=== PATIENT | male | born 1980 | race Caucasian/White ===

== ENCOUNTER 2016-07-19 11:07 | Emergency (ER) | payer MEDICAID, OTHER ==
--- NOTE | 2016-07-19 11:28 | EDM.PDOC ---
ED HPI GENERAL MEDICAL PROBLEM - General Chief Complaint: General Stated Complaint: doesnt feel well, shaky. Time Seen by Provider: 07/19/16 11:20 Source of Information: Reports: Patient, Old records ([facility] chart/EMR) History Limitations: Reports: No limitations - History of Present Illness INITIAL COMMENTS - FREE TEXT/NARRATIVE: Patient was brought to the emergency room via private automobile by his maternal aunt for evaluation of recent exacerbation of his alcohol abuse. The patient has been drinking about 1 L of vodka per day for the last 10 days secondary to increased stressors and his inability to see his son. The patient had been dry for about 2.5 years with a long history of previous alcohol abuse as above including inpatient alcohol treatment in [place] about 3 years. He has had nonspecific generalized abdominal wall pain and left lower chest wall pain during the last couple of days with at least 5 loose bowel movements per day and 20 episodes of emesis per day secondary to his alcohol use. No recent history of other abdominal pain, heartburn, melena, gross hematochezia, hematemesis, or any food intolerance, including fatty foods, etc., although the patient has not been eating much during the last couple of days. His last alcohol intake was at 22:30 hours this past evening. He rates his discomfort at 10/10 in the past but 5/10 currently. The patient does admit to using some marijuana about one month ago. The patient has not been to work since 07/14 secondary to his alcohol use and the above symptoms. The patient also denies any recent fever, cough, wheezing, dyspnea, etc.. Onset: gradual Onset Date: 07/17/16 Duration: Getting worse, Intermittent Location: Reports: chest, abdomen. Denies: head, face, neck, back, pelvis, upper extremity, left, upper extremity, right Quality: Reports: Ache, Burning Severity: severe Improves with: Reports: None Worsens with: Reports: None Context: Reports: Other (As above) Associated Symptoms: Denies: confusion, chest pain, cough, diaphoresis, fever/ chills, headaches, loss of appetite, malaise, nausea/vomiting, seizure, shortness of breath, syncope, weakness Treatments MEDICAL RESEARCH ASSISTANT: Reports: Other (see below) (None) abdominal pain Pain Score (Numeric/FACES): 5 - Related Data Allergies Allergy/AdvReac Type Severity Reaction Status Date / Time tramadol Allergy Shaking Verified 07/19/16 11:08 Home Meds: Home Meds Omeprazole Magnesium [Prilosec Otc] 20 mg PO BIDAC #14 tablet. 07/19/16 [Rx] Ondansetron [Zofran ODT] 4 mg PO Q6H PRN #10 tab.dis 07/19/16 [Rx] Past Medical History HEENT History: Reports: Other (see below) Other HEENT History: Caries Cardiovascular History: Reports: Hypertension Gastrointestinal History: Reports: Cholelithiasis, Gastritis, GI bleed, Hepatitis, PUD, Other (see below) Other Gastrointestinal History: Chronic LFTs elevation secondary to alcohol abuse and possible fatty liver, previous GI bleed on 12/30/11 with history of peptic ulcer disease secondary to NSAIDs and alcohol use, acute cholecystitis with hyperbilirubinemia on 07/10/12 with no surgery Musculoskeletal History: Reports: Fracture, Osteoarthritis, Other (see below) Other Musculoskeletal History: Right proximal fibular fracture in 2017, right distal clavicular fracture on 06/28/16, right second, third, and fourth metatarsal fractures on 01/23/12, multiple previous knee injuries including ligamental tears with no surgeries Neurological History: Reports: Other (see below). Denies: Seizure Other Neuro History: No history of DTs or alcohol-induced seizures Psychiatric History: Reports: Addiction, Anxiety, Depression, Psych Hospitalization(s), Other (see below) Other Psychiatric History: Alcohol treatment in about 2013, alcohol and marijuana abuse - Past Surgical History GI Surgical History: Reports: Appendectomy, Hernia, inguinal, Other (see below) Other GI Surgeries/Procedures: Appendectomy at age 17, right inguinal hernia repair at age 8 Social & Family History - Tobacco Use Smoking Status *Q: Current Every Day Smoker Tobacco Use Within Last Twelve Months: Cigarettes Years of Tobacco use: 18 Packs/Tins Daily: 1 (Maximum use of 2 packs per day) Used Tobacco, but Quit: Yes Smoking Cessation Information Provided To Patient: Yes Second Hand Smoke Exposure: Yes Second Hand Smoke Education Provided: Yes - Alcohol Use Alcohol Use History: Yes Days Per Week of Alcohol Use: 7 (4 previous DUIs last in April 2013 with secondary incarceration) Number of Drinks Per Day: 10 (1 L of vodka/day as above) Total Drinks Per Week: 70 Date of Last Drink: 07/18/16 Time of Last Drink: 22:30 Alcohol Use in Last Twelve Months: Yes Alcohol Use Frequency: Binges - Recreational Drug Use Recreational Drug Use: Yes Drug Use in Last 12 Months: Yes Recreational Drug Type: Reports: Marijuana/Hashish Recreational Drug Use Frequency: Binges Recreational Drug Last Use: May 2016 Recreational Drug Route: Reports: Inhaled - Living Situation & Occupation Living situation: Reports: single (One child) 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 ED EXAM, GENERAL - Physical Exam Exam: See Below Exam Limited By: Intoxication General Appearance: no apparent distress, anxious (Moderate), other (Moderate intoxication) Eye Exam: bilateral eye: EOMI, normal inspection (No nystagmus), PERRL Ears: normal external exam, normal canal, hearing grossly normal, normal TMs Nose: normal inspection, normal mucosa, no blood Throat/Mouth: Normal inspection, Normal lips, Normal gums, Normal oropharynx, Normal voice, No airway compromise. No: Normal teeth (Multiple caries and broken teeth into the gumline with no acute abscesses), Dysphagia, Inflammation Head: atraumatic, normocephalic. No: facial swelling, facial tenderness, sinus tenderness Neck: normal inspection, supple, non-tender, full range of motion. No: lymphadenopathy (L), lymphadenopathy (R), thyromegaly Respiratory/Chest: no respiratory distress, lungs clear, normal breath sounds, no accessory muscle use, chest non-tender. No: pleural rub, retractions Cardiovascular: normal peripheral pulses, regular rate, rhythm, no edema, no gallop, no JVD, no murmur, no rub. No: gallop/S3, gallop/S4, friction rub Peripheral Pulses: 4+: radial (L), radial (R) GI/Abdominal: normal bowel sounds, soft, non tender, no organomegaly, no distention, no abnormal bruit, no mass. No: guarding (Male) Exam: Deferred Rectal (Males) Exam: Deferred Back Exam: normal inspection, full range of motion. No: CVA tenderness (L), CVA tenderness (R) Extremities: normal inspection, normal range of motion, non-tender, no pedal edema, normal capillary refill. No: Lanie's Sign Neurological: alert, oriented, CN II-XII intact, normal cognition, normal gait, normal reflexes (Negative Babinski's), no motor/sensory deficits Psychiatric: anxious (Moderate), depressed mood (Moderate with adequate eye contact and no suicidal ideation) Skin Exam: Warm, Dry, Intact, Normal color, No rash. No: Diaphoretic, Jaundice , Wound/incision Lymphatic: no adenopathy Course - Vital Signs Last Recorded V/S: Last Vital Signs Temp 36.7 C 07/19/16 12:27 Pulse 73 07/19/16 12:27 Resp 20 07/19/16 12:27 BP 119/72 07/19/16 12:27 Pulse Ox 98 07/19/16 12:27 Vital Signs - 24 hr 07/19/16 07/19/16 11:11 12:27 Temperature [ 36.7 C Temporal] Pulse, 101 H 73 Peripheral [ Right Pulse Oximetry] Respiratory 20 20 Rate Blood Pressure 127/97 H [Left Upper Arm ] Blood Pressure 119/72 [Right Upper Arm] O2 Sat by Pulse 97 98 Oximetry - Orders/Labs/Meds Orders: Active Orders 24 hr Category Date Time Status Peripheral IV Care [RC] . DIRECTED Care 07/19/16 11:33 Active Abdomen Series w Chest 1V [CR] Stat Exams 07/19/16 11:34 Taken CULTURE URINE [RM] Routine Lab 07/19/16 13:15 Received Obtain Past Medical Record [OM.PC] Urgent Oth 07/19/16 11:30 Active Peripheral IV Insertion Adult [OM.PC] Routine Oth 07/19/16 11:30 Ordered Labs: Laboratory Tests 07/19/16 07/19/16 07/19/16 Range/Units 11:35 11:35 11:35 WBC 5.9 (4.0-10.2) K/uL RBC 5.30 (4.33-5.41) M/uL Hgb 17.1 H D (13.1-16.8) g/dL Hct 48.8 (39.0-49.0) % MCV 92.1 (84.0-98.0) fL MCH 32.3 (28.2-33.3) pg MCHC 35.0 (31.7-36.0) g/dL RDW 14.9 H (11.2-14.1) % Plt Count 232 (150-350) K/uL Neut % (Auto) 39.5 L (45.0-80.0) % Lymph % (Auto) 51.0 H (10.0-50.0) % Terrell % (Auto) 7.6 (2.0-14.0) % Eos % (Auto) 1.2 (0.0-5.0) % Baso % (Auto) 0.7 (0.0-2.0) % Neut # (Auto) 2.35 (1.40-7.00) K/uL Lymph # (Auto) 3.03 (0.50-3.50) K/uL Terrell # (Auto) 0.45 (0.00-1.00) K/uL Eos # (Auto) 0.07 (0.00-0.50) K/uL Baso # (Auto) 0.04 (0.00-0.20) K/uL PT 11.7 (9.8-11.7) SEC INR 1.1 APTT (23.5-30.0) SEC Sodium 141 (136-145) mmol/L Potassium 3.6 (3.5-5.1) mmol/L Chloride 102 (98-107) mmol/L Carbon Dioxide 24.2 (21.0-32.0) mmol/L BUN 13 (7-18) mg/dL Creatinine 0.84 (0.51-1.17) mg/dL Est Cr Clr Drug Dosing TNP Estimated GFR (MDRD) > 60 mL/min Glucose 104 (74-106) mg/dL Lactic Acid (0.4-2.0) mmol/L Uric Acid (2.6-7.2) mg/dL Calcium 8.2 L (8.5-10.1) mg/dL Magnesium (1.8-2.4) mg/dL Total Bilirubin 1.1 H (0.2-1.0) mg/dL AST 65 H (15-37) U/L ALT 41 (12-78) U/L Alkaline Phosphatase 96 (46-116) IU/L Total Protein 8.0 (6.4-8.2) g/dL Albumin 4.1 (3.4-5.0) g/dL Amylase 70 (25-115) U/L Lipase (73-393) U/L TSH, Ultra Sensitive (0.358-3.740) mIU/mL Specimen Type Urine Color Urine Appearance Urine pH (5.0-9.0) Ur Specific Max (1.005-1.030) Urine Protein (NEGATIVE) mg/dL Urine Glucose (UA) (NEGATIVE) mg/dL Urine Ketones (NEGATIVE) mg/dL Urine Occult Blood (NEGATIVE) Urine Nitrite (NEGATIVE) Urine Bilirubin (NEGATIVE) Urine Urobilinogen (0.2-1.0) E.U./dL Ur Leukocyte Esterase (NEGATIVE) Urine RBC /HPF Urine WBC /HPF Ur Epithelial Cells /LPF Urine Bacteria (NONE TO FEW) /HPF Urine Mucus (NEGATIVE) /LPF Urine Opiates Screen (NEGATIVE) Urine Methadone Screen (NEGATIVE) U Acetaminophen Screen (NEGATIVE) Ur Barbiturates Screen (NEGATIVE) Ur Tricyclics Screen (NEGATIVE) Ur Phencyclidine Scrn (NEGATIVE) Ur Amphetamine Screen (NEGATIVE) U Methamphetamines Scrn (NEGATIVE) U Benzodiazepines Scrn (NEGATIVE) U Cocaine Metab Screen (NEGATIVE) U Marijuana (THC) Screen (NEGATIVE) Ethyl Alcohol (0.000-0.080) g/dL Ketones H. pylori IgG Antibody (NEGATIVE) 07/19/16 07/19/16 07/19/16 Range/Units 11:35 11:35 11:35 WBC (4.0-10.2) K/uL RBC (4.33-5.41) M/uL Hgb (13.1-16.8) g/dL Hct (39.0-49.0) % MCV (84.0-98.0) fL MCH (28.2-33.3) pg MCHC (31.7-36.0) g/dL RDW (11.2-14.1) % Plt Count (150-350) K/uL Neut % (Auto) (45.0-80.0) % Lymph % (Auto) (10.0-50.0) % Terrell % (Auto) (2.0-14.0) % Eos % (Auto) (0.0-5.0) % Baso % (Auto) (0.0-2.0) % Neut # (Auto) (1.40-7.00) K/uL Lymph # (Auto) (0.50-3.50) K/uL Terrell # (Auto) (0.00-1.00) K/uL Eos # (Auto) (0.00-0.50) K/uL Baso # (Auto) (0.00-0.20) K/uL PT (9.8-11.7) SEC INR APTT 28.7 (23.5-30.0) SEC Sodium (136-145) mmol/L Potassium (3.5-5.1) mmol/L Chloride (98-107) mmol/L Carbon Dioxide (21.0-32.0) mmol/L BUN (7-18) mg/dL Creatinine (0.51-1.17) mg/dL Est Cr Clr Drug Dosing Estimated GFR (MDRD) mL/min Glucose (74-106) mg/dL Lactic Acid (0.4-2.0) mmol/L Uric Acid 7.4 H (2.6-7.2) mg/dL Calcium (8.5-10.1) mg/dL Magnesium 1.6 L (1.8-2.4) mg/dL Total Bilirubin (0.2-1.0) mg/dL AST (15-37) U/L ALT (12-78) U/L Alkaline Phosphatase (46-116) IU/L Total Protein (6.4-8.2) g/dL Albumin (3.4-5.0) g/dL Amylase (25-115) U/L Lipase 248 (73-393) U/L TSH, Ultra Sensitive 1.055 (0.358-3.740) mIU/mL Specimen Type Urine Color Urine Appearance Urine pH (5.0-9.0) Ur Specific Max (1.005-1.030) Urine Protein (NEGATIVE) mg/dL Urine Glucose (UA) (NEGATIVE) mg/dL Urine Ketones (NEGATIVE) mg/dL Urine Occult Blood (NEGATIVE) Urine Nitrite (NEGATIVE) Urine Bilirubin (NEGATIVE) Urine Urobilinogen (0.2-1.0) E.U./dL Ur Leukocyte Esterase (NEGATIVE) Urine RBC /HPF Urine WBC /HPF Ur Epithelial Cells /LPF Urine Bacteria (NONE TO FEW) /HPF Urine Mucus (NEGATIVE) /LPF Urine Opiates Screen (NEGATIVE) Urine Methadone Screen (NEGATIVE) U Acetaminophen Screen (NEGATIVE) Ur Barbiturates Screen (NEGATIVE) Ur Tricyclics Screen (NEGATIVE) Ur Phencyclidine Scrn (NEGATIVE) Ur Amphetamine Screen (NEGATIVE) U Methamphetamines Scrn (NEGATIVE) U Benzodiazepines Scrn (NEGATIVE) U Cocaine Metab Screen (NEGATIVE) U Marijuana (THC) Screen (NEGATIVE) Ethyl Alcohol 0.203 H (0.000-0.080) g/dL Ketones Negative H. pylori IgG Antibody Negative (NEGATIVE) 07/19/16 07/19/16 07/19/16 Range/Units 11:35 13:15 13:15 WBC (4.0-10.2) K/uL RBC (4.33-5.41) M/uL Hgb (13.1-16.8) g/dL Hct (39.0-49.0) % MCV (84.0-98.0) fL MCH (28.2-33.3) pg MCHC (31.7-36.0) g/dL RDW (11.2-14.1) % Plt Count (150-350) K/uL Neut % (Auto) (45.0-80.0) % Lymph % (Auto) (10.0-50.0) % Terrell % (Auto) (2.0-14.0) % Eos % (Auto) (0.0-5.0) % Baso % (Auto) (0.0-2.0) % Neut # (Auto) (1.40-7.00) K/uL Lymph # (Auto) (0.50-3.50) K/uL Terrell # (Auto) (0.00-1.00) K/uL Eos # (Auto) (0.00-0.50) K/uL Baso # (Auto) (0.00-0.20) K/uL PT (9.8-11.7) SEC INR APTT (23.5-30.0) SEC Sodium (136-145) mmol/L Potassium (3.5-5.1) mmol/L Chloride (98-107) mmol/L Carbon Dioxide (21.0-32.0) mmol/L BUN (7-18) mg/dL Creatinine (0.51-1.17) mg/dL Est Cr Clr Drug Dosing Estimated GFR (MDRD) mL/min Glucose (74-106) mg/dL Lactic Acid 2.8 H (0.4-2.0) mmol/L Uric Acid (2.6-7.2) mg/dL Calcium (8.5-10.1) mg/dL Magnesium (1.8-2.4) mg/dL Total Bilirubin (0.2-1.0) mg/dL AST (15-37) U/L ALT (12-78) U/L Alkaline Phosphatase (46-116) IU/L Total Protein (6.4-8.2) g/dL Albumin (3.4-5.0) g/dL Amylase (25-115) U/L Lipase (73-393) U/L TSH, Ultra Sensitive (0.358-3.740) mIU/mL Specimen Type Urincc Urine Color [place] Urine Appearance Clear Urine pH 7.0 (5.0-9.0) Ur Specific Max 1.025 (1.005-1.030) Urine Protein 30 H (NEGATIVE) mg/dL Urine Glucose (UA) Negative (NEGATIVE) mg/dL Urine Ketones Trace H (NEGATIVE) mg/dL Urine Occult Blood Negative (NEGATIVE) Urine Nitrite Negative (NEGATIVE) Urine Bilirubin Small H (NEGATIVE) Urine Urobilinogen 1.0 (0.2-1.0) E.U./dL Ur Leukocyte Esterase Negative (NEGATIVE) Urine RBC 0-5 /HPF Urine WBC 0-5 /HPF Ur Epithelial Cells Few /LPF Urine Bacteria Few (NONE TO FEW) /HPF Urine Mucus Many H (NEGATIVE) /LPF Urine Opiates Screen Positive H (NEGATIVE) Urine Methadone Screen Negative (NEGATIVE) U Acetaminophen Screen Negative (NEGATIVE) Ur Barbiturates Screen Negative (NEGATIVE) Ur Tricyclics Screen Negative (NEGATIVE) Ur Phencyclidine Scrn Negative (NEGATIVE) Ur Amphetamine Screen Negative (NEGATIVE) U Methamphetamines Scrn Negative (NEGATIVE) U Benzodiazepines Scrn Negative (NEGATIVE) U Cocaine Metab Screen Negative (NEGATIVE) U Marijuana (THC) Screen Positive H (NEGATIVE) Ethyl Alcohol (0.000-0.080) g/dL Ketones H. pylori IgG Antibody (NEGATIVE) Meds: Medications Discontinued Medications Generic Name Dose Route Start Last Admin Trade Name Freq PRN Reason Stop Dose Admin Famotidine 40 mg 07/19/16 11:31 07/19/16 11:46 Pepcid IVPUSH 07/19/16 11:32 40 mg ONETIME ONE Administration Lactated Ringer's 1,000 mls @ 999 mls/hr 07/19/16 11:31 07/19/16 11:46 Ringers, Lactated IV 07/19/16 12:31 999 mls/hr .BOLUS ONE Administration Ondansetron HCl 4 mg 07/19/16 11:31 07/19/16 11:46 Zofran IVPUSH 07/19/16 11:32 4 mg ONETIME ONE Administration Pantoprazole Sodium 40 mg 07/19/16 11:31 07/19/16 11:46 Protonix Iv IVPUSH 07/19/16 11:32 40 mg ONETIME ONE Administration Sodium Chloride 10 ml 07/19/16 11:31 07/19/16 11:46 Saline Flush FLUSH 10 ml ASDIRECTED PRN Administration Keep Vein Open Departure - Departure Time of Disposition: 13:40 Disposition: Home, Self-Care 01 Condition: fair Clinical Impression: Mixed anxiety and depressive disorder, Dental caries, Alcohol abuse, Elevated LFTs, Illicit drug use, Tobacco abuse counseling, Hyperuricemia, Hypomagnesemia , Dehydration, Peptic reflux disease, Lactic acid increased COPD (chronic obstructive pulmonary disease) Qualifiers: COPD type: emphysema Emphysema type: panlobular Qualified Code(s): J43.1 - Panlobular emphysema Abdominal pain Qualifiers: Abdominal location: generalized Qualified Code(s): R10.84 - Generalized abdominal pain Prescriptions: Omeprazole Magnesium [Prilosec Otc] 20 mg PO BIDAC #14 tablet. Ondansetron [Zofran ODT] 4 mg PO Q6H PRN #10 tab.dis PRN Reason: Nausea/Vomiting Instructions: Alcoholic Liver Disease, [id number], Alcohol Use Disorder, Gout , [id number], Ondansetron injection, Pantoprazole injection, Alcohol Intoxication, [id number], Famotidine injection, Gastroesophageal Reflux Disease, Adult Referrals: PCP,None [Ordering Only Provider] - Forms: ED Department Discharge, Return to Work/School Form Additional Instructions: 1. Followup with your regular provider in the next 3-7 days for reevaluation and recommended repeat 12 hour fasting CBC, magnesium level, uric acid level, lactic acid level, lipid panel, and comprehensive metabolic panel 2. Stop all alcohol use and illicit drug use VALENTIN as discussed. 3. Work excuse- See Form 4. Strongly consider alcohol treatment and evaluation VALENTIN with recommendation of possible directed evaluation by [facility] in [place] 5. Followup with dentist VALENTIN as previously recommended 6. Williams diet including encouragement of oral fluids such as sports drinks, etc. for 24-48 hours as directed. Advance to strict low-fat, low-cholesterol diet, uric acid as tolerated thereafter. 7. No driving for the next 24 hours with no driving while using alcohol, illicit drugs, etc. 8. Stop all tobacco use VALENTIN as directed/per provided information and consider contacting [employer], etc.. 9. Consider lung function test/PFTs by your regular provider - Problem List & Annotations (1) Abdominal pain SNOMED Code(s): 66995017 Code(s): R10.9 - UNSPECIFIED ABDOMINAL PAIN Status: Acute Priority: High Onset Date: ~07/17/16 Annotation/Comment:: Nonspecific generalized abdominal pain and left lower rib pain from muscle strain secondary to recurrent nausea and emesis as above. Observe for now. Close followup by his regular providers as per discharge instructions. Symptoms resolved at time of discharge, including no nausea or emesis Qualifiers: Abdominal location: generalized Qualified Code(s): R10.84 - Generalized abdominal pain (2) Alcohol abuse SNOMED Code(s): 90451357 Code(s): F10.10 - ALCOHOL ABUSE, UNCOMPLICATED Status: Acute Priority: High Annotation/Comment:: Long history of alcohol abuse as above. Emotional support provided. Various therapeutic options were discussed with the patient, who does not wish to have referral today for immediate alcohol treatment. He was strongly advised to obtain this treatment VALENTIN and stop all alcohol use immediately. He does not wish to return to treatment facilities and [place], however does agree to consider [facility] in [place]. Note persistent alcohol level of 203 this morning despite discontinuing alcohol yesterday evening as above with the patient not feeling intoxicated at this time. (3) Lactic acid increased SNOMED Code(s): 96994705 Code(s): E87.2 - ACIDOSIS Status: Acute Priority: High Onset Date: Annotation/Comment:: Likely secondary to his alcohol use and mild dehydration. IV fluids given in the emergency room. Close followup by his regular provider as per discharge instructions. No evidence of significant clinical acidosis (4) Dehydration SNOMED Code(s): 65297215 Code(s): E86.0 - DEHYDRATION Status: Acute Priority: High Onset Date: ~ 07/19/16 Annotation/Comment:: Abdomen symptoms, etc. significantly improved with IV fluids, etc. as above. Various therapeutic options were discussed with the patient not wishing any further IV fluids at this time. Williams diet, encouragement of oral fluids, etc. as per discharge instructions (5) Mixed anxiety and depressive disorder SNOMED Code(s): 033217025 Code(s): F41.8 - OTHER SPECIFIED ANXIETY DISORDERS Status: Acute Priority : Medium Annotation/Comment:: Moderate control by today's exam. Continue to observe closely by his regular providers (6) Dental caries SNOMED Code(s): 68374367 Code(s): K02.9 - DENTAL CARIES, UNSPECIFIED Status: Chronic Priority: Medium Onset Date: 12/17/13 Annotation/Comment:: Patient previously given information concerning local dentist and also the dental clinic in [place] and advised to followup with a dentist [facility]. (7) COPD (chronic obstructive pulmonary disease) SNOMED Code(s): 17411561 Code(s): J44.9 - CHRONIC OBSTRUCTIVE PULMONARY DISEASE, UNSPECIFIED Status : Chronic Priority: Medium Annotation/Comment:: COPD by chest x-ray likely secondary to his tobacco use. Followup and further evaluation by his regular providers as per discharge instructions Qualifiers: COPD type: emphysema Emphysema type: panlobular Qualified Code(s): J43.1 - Panlobular emphysema (8) Elevated LFTs SNOMED Code(s): 503552773 Code(s): R94.5 - ABNORMAL RESULTS OF LIVER FUNCTION STUDIES Status: Chronic Priority: Medium Annotation/Comment:: Likely chronic LFTs elevation secondary to his alcohol use. Close followup by his regular provider as per discharge instructions (9) Hyperuricemia SNOMED Code(s): 75972186 Code(s): E79.0 - HYPERURICEMIA W/O SIGNS OF INFLAM ARTHRIT AND TOPHACEOUS DIS Status: Acute Priority: Medium Onset Date: 07/19/16 Annotation/ Comment:: No history of gout or gout attacks in the future. Hyperuricemia likely secondary to his alcohol use. Dietary issues, etc. discussed and provided (10) Hypomagnesemia SNOMED Code(s): 427639696 Code(s): E83.42 - HYPOMAGNESEMIA Status: Acute Priority: Medium Onset Date: 07/19/16 Annotation/Comment:: Likely secondary to his alcohol use. Close follow up by his regular provider (11) Illicit drug use SNOMED Code(s): 201026740 Code(s): F19.90 - OTHER PSYCHOACTIVE SUBSTANCE USE, UNSPECIFIED, UNCOMPLICATED Status: Chronic Priority: High Annotation/Comment:: Discontinue all illicit drug use VALENTIN as discussed (12) Peptic reflux disease SNOMED Code(s): 38910219 Code(s): K21.9 - GASTRO-ESOPHAGEAL REFLUX DISEASE WITHOUT ESOPHAGITIS Status: Acute Priority: High Annotation/Comment:: IV Pepcid and IV Protonix given as GI prophylaxis. Further GI workup depending on his clinical course (13) Tobacco abuse counseling SNOMED Code(s): 374948673, 328768276, 608462115 Code(s): Z71.6 - TOBACCO ABUSE COUNSELING Status: Chronic Priority: Medium Annotation/Comment:: Tobacco cessation strongly encouraged with information provided - Problem List Review Problem List Initiated/Reviewed/Updated: Yes - My Orders Last 24 Hours: My Active Orders 07/19/16 11:30 Obtain Past Medical Record [OM.PC] Urgent Peripheral IV Insertion Adult [OM.PC] Routine 07/19/16 11:33 Peripheral IV Care [RC] . DIRECTED 07/19/16 11:34 Abdomen Series w Chest 1V [CR] Stat 07/19/16 13:15 CULTURE URINE [RM] Routine - Assessment/Plan Last 24 Hours: My Active Orders 07/19/16 11:30 Obtain Past Medical Record [OM.PC] Urgent Peripheral IV Insertion Adult [OM.PC] Routine 07/19/16 11:33 Peripheral IV Care [RC] . DIRECTED 07/19/16 11:34 Abdomen Series w Chest 1V [CR] Stat 07/19/16 13:15 CULTURE URINE [RM] Routine Assessment:: As above Plan: As above. Extensive precautions were given to the patient and his mother, who are in agreement with the treatment plan. See Patient Instructions for further treatment and plan.
[2016-07-19] MEDS ORDERED: Pantoprazole 40 MG Vial IVPUSH ONE (11:31)
[2016-07-19] MEDS ORDERED: Famotidine 20 MG/2 ML SDV IVPUSH ONE (11:31)
[2016-07-19] MEDS ORDERED: Lactated Ringers 1,000 ML IV ONE (11:31)
[2016-07-19] MEDS ORDERED: Sodium Chloride 0.9% 10 ML Syringe FLUSH PRN (11:31)
[2016-07-19] MEDS ORDERED: Ondansetron 4 MG/2 ML SDV IVPUSH ONE (11:31)
[2016-07-19 11:59] LABS: CHLORIDE,CL 102 mmol/L (98-107); SODIUM,NA 141 mmol/L (136-145)
[2016-07-19 12:31] VITALS: BP 119/72
== END 2016-07-19 13:45 | disposition home or self-care (01) ==
LOC: LL.ED 11:07
DX: R10.84 Generalized abdominal pain (principal); F10.129 Alcohol abuse with intoxication, unspecified; F41.8 Other specified anxiety disorders; K02.9 Dental caries, unspecified; F17.200 Nicotine dependence, unspecified, uncomplicated; E79.0 Hyperuricemia without signs of inflammatory arthritis and tophaceous disease; E86.0 Dehydration; K21.9 Gastro-esophageal reflux disease without esophagitis; J43.1 Panlobular emphysema; F12.90 Cannabis use, unspecified, uncomplicated; R94.5 Abnormal results of liver function studies; E83.42 Hypomagnesemia
CPT/HCPCS: 36415; 74022; 80053; 80305; 81001; 82009; 82150; 83605; 83690; 83735; 84443; 84550; 85025; 85610; 85730; 86318; 87086; 96361; 96374; 96375; 99285; C9113; G0480; J2405; J7050; J7120; 99283; S0028

== ENCOUNTER 2016-12-19 08:00 | Inpatient (IN) | payer MEDICAID, OTHER ==
[2016-12-19] MEDS ORDERED: LORazepam 2 MG/ML MDV IVPUSH ONE ×2 (08:13→12:34)
[2016-12-19] MEDS ORDERED: Ondansetron 4 MG/2 ML SDV IVPUSH ONE (08:13)
[2016-12-19] MEDS ORDERED: Sodium Chloride 0.9% 1,000 ML IV ONE ×2 (08:13→10:23)
[2016-12-19] MEDS ORDERED: Pantoprazole 40 MG Vial IVPUSH ONE (08:42)
[2016-12-19 09:12] LABS: CHLORIDE,CL 101 mmol/L (98-107); SODIUM,NA 141 mmol/L (136-145)
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
[2016-12-19] MEDS ORDERED: Potassium Chloride 10 MEQ Tab.ER PO ONE ×2 (10:25→18:58)
[2016-12-19] MEDS ORDERED: Famotidine 20 MG/2 ML SDV IVPUSH ONE (10:25)
[2016-12-19] MEDS ORDERED: Potassium Chloride 10 MEQ in Premix Bag 1 BAG IV ONE (10:26)
[2016-12-19] MEDS ORDERED: Thiamine 100 MG in Sodium Chloride 0.9% 100 ML IV ONE (10:27)
[2016-12-19] MEDS: Ondansetron 4 MG/2 ML SDV IVPUSH PRN ×2 (13:16→19:34)
[2016-12-19] MEDS ORDERED: Acetaminophen 325 MG Tab PO PRN (14:21)
[2016-12-19] MEDS ORDERED: Promethazine 25 MG/ML SDV IM ONE (15:57)
[2016-12-19] MEDS ORDERED: Sodium Chloride 0.9% 1,000 ML IV SCH (16:00)
[2016-12-19] MEDS: Nicotine 21 MG/24 Hr Patch TRDERM SCH (16:08)
[2016-12-19] MEDS ORDERED: Dextrose 5%-Lactated Ringers 1,000 ML IV SCH (19:15)
[2016-12-19] MEDS: Sodium Chloride 0.9% 10 ML Syringe FLUSH PRN (19:34)
[2016-12-19] MEDS: LORazepam 2 MG/ML MDV IVPUSH PRN ×2 (19:34→23:40)
[2016-12-19] MEDS: Ketorolac 30 MG/ML SDV IVPUSH PRN (20:28)
[2016-12-20] MEDS: LORazepam 2 MG/ML MDV IVPUSH PRN ×2 (03:54→09:51)
[2016-12-20] MEDS: Ketorolac 30 MG/ML SDV IVPUSH PRN (03:54)
[2016-12-20 07:47] LABS: CHLORIDE,CL 102 mmol/L (98-107); SODIUM,NA 138 mmol/L (136-145)
[2016-12-20] MEDS: REMOVE NICOTINE TRDERM SCH (09:49)
[2016-12-20] MEDS: Nicotine 21 MG/24 Hr Patch TRDERM SCH (09:49)
[2016-12-20] MEDS: Sodium Chloride 0.9% 10 ML Syringe FLUSH PRN ×2 (09:52→10:52)
[2016-12-20] MEDS ORDERED: Sodium Chloride 0.9% 1,000 ML IV SCH (10:00)
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
[2016-12-20] MEDS: Potassium Chloride 20 MEQ Tab.ER PO SCH ×3 (10:28→18:02)
[2016-12-20] MEDS: Pantoprazole 40 MG Vial IVPUSH SCH ×2 (10:29→21:42)
[2016-12-20] MEDS: LORazepam 1 MG Tab PO SCH ×3 (10:29→18:02)
[2016-12-20] MEDS: Citalopram 20 MG Tab PO SCH (10:30)
[2016-12-20] MEDS: Thiamine 100 MG Tab PO SCH ×2 (10:31→19:14)
[2016-12-20] MEDS: Calcium Carbonate 500 MG Tab.Chew PO SCH ×2 (10:31→18:03)
[2016-12-20] MEDS: Lisinopril 10 MG Tab PO SCH (10:39)
[2016-12-20] MEDS: Potassium Chloride 10 MEQ in Premix Bag 1 BAG IV SCH ×6 (10:43→19:13)
[2016-12-20] MEDS ORDERED: Acetaminophen 325 MG Tab PO PRN (11:12)
[2016-12-20] MEDS: Acetaminophen 325 MG Tab PO SCH ×3 (12:18→19:14)
[2016-12-20] MEDS ORDERED: Menthol/Methyl Salicylate 85 GM Tube TOP PRN (16:00)
[2016-12-21] MEDS: LORazepam 2 MG/ML MDV IVPUSH PRN (00:19)
[2016-12-21] MEDS: LORazepam 1 MG Tab PO SCH ×2 (07:06→11:16)
[2016-12-21 08:32] LABS: CHLORIDE,CL 101 mmol/L (98-107); SODIUM,NA 137 mmol/L (136-145)
[2016-12-21] MEDS: Citalopram 20 MG Tab PO SCH (09:02)
[2016-12-21] MEDS: Lisinopril 10 MG Tab PO SCH (09:03)
[2016-12-21] MEDS: Potassium Chloride 20 MEQ Tab.ER PO SCH ×2 (09:03→11:15)
[2016-12-21] MEDS: Nicotine 21 MG/24 Hr Patch TRDERM SCH (09:03)
[2016-12-21] MEDS: REMOVE NICOTINE TRDERM SCH (09:04)
[2016-12-21] MEDS: Calcium Carbonate 500 MG Tab.Chew PO SCH (09:04)
[2016-12-21] MEDS: Acetaminophen 325 MG Tab PO SCH ×2 (09:04→11:17)
[2016-12-21] MEDS: Pantoprazole 40 MG Vial IVPUSH SCH (09:06)
[2016-12-21] MEDS: Sodium Chloride 0.9% 10 ML Syringe FLUSH PRN (09:06)
[2016-12-21 12:55] VITALS: BP 130/92
--- NOTE | 2016-12-21 16:38 | PCM.DCSUM1 ---
Discharge Summary - Hospital Course HPI Initial Comments: See emergency room note/admission H&P Brief History: See emergency room note/admission H&P - Discharge Data Discharge Date: 12/21/16 Discharge Disposition: Against Medical Advice 07 Condition: Good - Discharge Diagnosis/Problem(s) (1) Hypokalemia SNOMED Code(s): 97058164 ICD Code: E87.6 - HYPOKALEMIA Status: Acute Priority: High Onset Date: 12/19/16 Problem Details: Patient left AMA with resolution of his previous hypokalemia. He will contact his regular provider concerning adjustment of his medical therapy with no prescriptions, discharge instructions, etc. provided secondary to patient refusing to stay until hospital rounds could be completed today. He did leave this facility prior to my examination today. Note that the patient was confrontational throughout this hospitalization both the nursing staff and threatened to leave AMA repetitively. Initial refractory hypokalemia, which was progressive yesterday despite previous treatment by [facility] physician. High-dose IV and oral potassium supplementation with continuation of cardiac monitoring until hospital discharge. Note the patient initially wished to leave AMA yesterday, however did finally agree to continued hospital care secondary to risk of from his hypokalemia. Mother did help convince the patient to stay and did come to this facility after the patient was initially evaluated by me during hospital rounds. Treatment plan, etc. discussed. Emotional support was provided both to the patient and his mother. Case management worker is also present today for attempts to obtain admission to call treatment facility, which the patient appears to be a little bit more agreeable to this morning. Note problems with no insurance coverage. In addition , problems with tobacco and illicit drug abuse (2) Hypocalcemia SNOMED Code(s): 2306182 ICD Code: E83.51 - HYPOCALCEMIA Status: Acute Priority: High Onset Date : 12/20/16 Problem Details: Initiated high-dose calcium supplement yesterday (3) Alcohol abuse SNOMED Code(s): 37714923 ICD Code: F10.10 - ALCOHOL ABUSE, UNCOMPLICATED Status: Acute Priority: High Problem Details: Long history of alcohol abuse as above. Otherwise as above. No DTs during this hospitalization with Ativan used as DT prophylaxis (4) Hypertension SNOMED Code(s): 40843460 ICD Code: I10 - ESSENTIAL (PRIMARY) HYPERTENSION Status: Chronic Priority : Medium Problem Details: Blood pressures elevated during this hospitalization with likely anxiety and alcohol component. Initiate low-dose antihypertensive therapy, although problems with medication noncompliance in the past Qualifiers: Hypertension type: essential hypertension Qualified Code(s): I10 - Essential (primary) hypertension (5) Nausea & vomiting SNOMED Code(s): 57604550 ICD Code: R11.2 - NAUSEA WITH VOMITING, UNSPECIFIED Status: Acute Priority: High Onset Date: ~12/19/16 Problem Details: Resolved with Zofran therapy. IV fluids also given during this hospitalization Qualifiers: Vomiting type: unspecified Vomiting Intractability: non-intractable Qualified Code(s): R11.2 - Nausea with vomiting, unspecified (6) Dehydration SNOMED Code(s): 00029089 ICD Code: E86.0 - DEHYDRATION Status: Acute Priority: High Onset Date: ~07/19/16 Problem Details: Resolved on yesterday's exam. Otherwise as above. Continued IV fluids until patient threatened to pull out his own IV (7) Mixed anxiety and depressive disorder SNOMED Code(s): 336403472 ICD Code: F41.8 - OTHER SPECIFIED ANXIETY DISORDERS Status: Acute Priority: High Problem Details: IV Ativan in effect on a when necessary basis , however initiated regular scheduled oral regimens as DT prophylaxis. Also initiate Celexa for his anxiety. Emotional support provided. (8) Peptic reflux disease SNOMED Code(s): 61268352 ICD Code: K21.9 - GASTRO-ESOPHAGEAL REFLUX DISEASE WITHOUT ESOPHAGITIS Status: Chronic Priority: High Problem Details: IV Protonix as GI prophylaxis secondary to high-dose potassium chloride therapy (9) COPD (chronic obstructive pulmonary disease) SNOMED Code(s): 49520622 ICD Code: J44.9 - CHRONIC OBSTRUCTIVE PULMONARY DISEASE, UNSPECIFIED Status : Chronic Priority: Medium Problem Details: Fever of 37.4 earlier in hospitalization, however afebrile this morning. No bronchitic type symptoms. Observe for now. Nicoderm patch has been initiated. Tobacco cessation advisable with additional current marijuana use with positive drug screen on admission Qualifiers: COPD type: emphysema Emphysema type: panlobular Qualified Code(s): J43.1 - Panlobular emphysema (10) Illicit drug use SNOMED Code(s): 923807608 ICD Code: F19.90 - OTHER PSYCHOACTIVE SUBSTANCE USE, UNSPECIFIED, UNCOMPLICATED Status: Chronic Priority: High Problem Details: As above. Discontinue all illicit drug use VALENTIN especially in light of anxiety depression disorder (11) Tobacco abuse counseling SNOMED Code(s): 542190649, 813912358, 375088523 ICD Code: Z71.6 - TOBACCO ABUSE COUNSELING Status: Chronic Priority: Medium Problem Details: Tobacco cessation encouraged with tobacco cessation information to be provided at discharge (12) Hypomagnesemia SNOMED Code(s): 196509802 ICD Code: E83.42 - HYPOMAGNESEMIA Status: Acute Priority: Medium Onset Date: 07/19/16 Problem Details: Likely secondary to his alcohol use. He left AMA. Magnesium oxide supplementation recommended. Close follow up by his regular provider (13) Elevated LFTs SNOMED Code(s): 684212370 ICD Code: R94.5 - ABNORMAL RESULTS OF LIVER FUNCTION STUDIES Status: Chronic Priority: Medium Problem Details: Likely chronic LFTs elevation secondary to his alcohol use. Close followup by his regular provider as per discharge instructions. In addition, note lipase elevation with no direct evidence of clinical pancreatitis - Patient Summary/Data Operative Procedure(s) Performed: None Complications: None although patient left AMA Consults: youth services librarian, case management Labs Pending at D/C: None Recommended Follow-up Testing/Procedures: No discharge instructions given secondary to his AMA status, however patient strongly advised to follow-up with his regular provider VALENTIN with likely change needed in his current medical therapy secondary to multiple medication changes during this hospitalization as above sec Planned Operative Procedure(s) after DC: None - Patient Instructions Diet: Heart Healthy Diet Activity: As Tolerated Driving: May Drive Today Showering/Bathing: May Shower Notify Provider of: Fever, Increased Pain, Nausea and/or Vomiting - Discharge Plan Home Medications: Home Meds . [No Known Home Meds] 12/19/16 [History] Referrals: PCP,Unknown [Primary Care Provider] - - Discharge Summary/Plan Comment DC Time >30 min.: Yes (Attempts at coordination of care) Discharge Summary/Plan Comment: As above. - General Info Date of Service: 12/21/16 Admission Dx/Problem (Free Text: 1. Nausea/emesis 2. Dehydration 3. Alcohol abuse Subjective Update: No physical exam conducted secondary to patient leaving AMA - Patient Data Vitals - Most Recent: Last Vital Signs Temp 36.6 C 12/21/16 12:00 Pulse 108 H 12/21/16 12:00 Resp 17 12/21/16 12:00 BP 130/92 H 12/21/16 12:00 Pulse Ox 99 12/21/16 12:00 Vital Signs - 24 hr 12/20/16 12/21/16 12/21/16 20:00 00:00 08:00 Temperature [ 36.6 C 36.6 C 36.4 C Oral] Pulse, 67 84 99 Peripheral [ Right Pulse Oximetry] Respiratory 17 20 15 Rate Blood Pressure 146/104 H 133/102 H [Left Upper Arm ] Blood Pressure 137/86 [Right Upper Arm] O2 Sat by Pulse 98 99 99 Oximetry 12/21/16 12/21/16 09:00 12:00 Temperature [ 36.6 C Oral] Pulse, 108 H Peripheral [ Right Pulse Oximetry] Respiratory 17 Rate Blood Pressure 120/83 130/92 H [Left Upper Arm ] Blood Pressure [Right Upper Arm] O2 Sat by Pulse 99 Oximetry Weight - Most Recent: 89.312 kg I&O - Last 24 hours: Intake & Output 12/21/16 12/21/16 12/21/16 06:59 14:59 22:59 Intake Total 473 Output Total 500 Balance -27 Imaging Impressions - Last 24 hrs: Substation Operator Chief showed mild sinus arrhythmia with no ectopy or arrhythmia and heart rate ranging in the 50s to low 100s Lab Results - Last 24 hrs: Laboratory Results - last 24 hr 12/21/16 12/21/16 12/21/16 Range/Units 06:55 06:55 06:55 WBC 4.4 (4.0-10.2) K/uL RBC 4.14 L (4.33-5.41) M/uL Hgb 14.3 (13.1-16.8) g/dL Hct 41.9 (39.0-49.0) % MCV 101.2 H (84.0-98.0) fL MCH 34.5 H (28.2-33.3) pg MCHC 34.1 (31.7-36.0) g/dL RDW 12.6 (11.2-14.1) % Plt Count 84 L (150-350) K/uL Neut % (Auto) 44.0 L (45.0-80.0) % Lymph % (Auto) 44.0 (10.0-50.0) % [place] % (Auto) 6.1 (2.0-14.0) % Eos % (Auto) 5.4 H (0.0-5.0) % Baso % (Auto) 0.5 (0.0-2.0) % Neut # (Auto) 1.94 (1.40-7.00) K/uL Lymph # (Auto) 1.94 (0.50-3.50) K/uL [place] # (Auto) 0.27 (0.00-1.00) K/uL Eos # (Auto) 0.24 (0.00-0.50) K/uL Baso # (Auto) 0.02 (0.00-0.20) K/uL PT 11.0 (9.8-11.7) SEC INR 1.0 APTT 27.9 (23.5-30.0) SEC Sodium 137 (136-145) mmol/L Potassium 3.8 (3.5-5.1) mmol/L Chloride 101 (98-107) mmol/L Carbon Dioxide 28.5 (21.0-32.0) mmol/L BUN 5 L (7-18) mg/dL Creatinine 0.84 (0.51-1.17) mg/dL Est Cr Clr Drug Dosing 126.74 mL/min Estimated GFR (MDRD) > 60 mL/min Glucose 87 (74-106) mg/dL Calcium 7.8 L (8.5-10.1) mg/dL Magnesium 0.9 L (1.8-2.4) mg/dL Total Bilirubin 0.9 (0.2-1.0) mg/dL AST 146 H (15-37) U/L ALT 84 H (12-78) U/L Alkaline Phosphatase 83 (46-116) IU/L Total Protein 7.0 (6.4-8.2) g/dL Albumin 3.4 (3.4-5.0) g/dL Amylase 58 (25-115) U/L Lipase 410 H (73-393) U/L Laboratory Tests 12/19/16 12/19/16 12/19/16 Range/Units 08:20 08:20 09:55 WBC 8.4 (4.0-10.2) K/uL RBC 4.75 (4.33-5.41) M/uL Hgb 16.5 (13.1-16.8) g/dL Hct 46.1 (39.0-49.0) % MCV 97.1 D (84.0-98.0) fL MCH 34.7 H (28.2-33.3) pg MCHC 35.8 (31.7-36.0) g/dL RDW 13.0 (11.2-14.1) % Plt Count 135 L D (150-350) K/uL Neut % (Auto) 43.2 L (45.0-80.0) % Lymph % (Auto) 47.4 (10.0-50.0) % [place] % (Auto) 8.5 (2.0-14.0) % Eos % (Auto) 0.4 (0.0-5.0) % Baso % (Auto) 0.5 (0.0-2.0) % Neut # (Auto) 3.62 (1.40-7.00) K/uL Lymph # (Auto) 3.97 H (0.50-3.50) K/uL [place] # (Auto) 0.71 (0.00-1.00) K/uL Eos # (Auto) 0.03 (0.00-0.50) K/uL Baso # (Auto) 0.04 (0.00-0.20) K/uL PT (9.8-11.7) SEC INR APTT (23.5-30.0) SEC Sodium 141 (136-145) mmol/L Potassium 3.3 L (3.5-5.1) mmol/L Chloride 101 (98-107) mmol/L Carbon Dioxide 25.4 (21.0-32.0) mmol/L BUN 10 (7-18) mg/dL Creatinine 0.98 (0.51-1.17) mg/dL Est Cr Clr Drug Dosing 108.63 mL/min Estimated GFR (MDRD) > 60 mL/min Glucose 92 (74-106) mg/dL Calcium 9.3 (8.5-10.1) mg/dL Magnesium (1.8-2.4) mg/dL Total Bilirubin (0.2-1.0) mg/dL AST (15-37) U/L ALT (12-78) U/L Alkaline Phosphatase (46-116) IU/L Total Protein (6.4-8.2) g/dL Albumin (3.4-5.0) g/dL Amylase (25-115) U/L Lipase (73-393) U/L Specimen Type Urine Color Urine Appearance Urine pH (5.0-9.0) Ur Specific [place] (1.005-1.030) Urine Protein (NEGATIVE) mg/dL Urine Glucose (UA) (NEGATIVE) mg/dL Urine Ketones (NEGATIVE) mg/dL Urine Occult Blood (NEGATIVE) Urine Nitrite (NEGATIVE) Urine Bilirubin (NEGATIVE) Urine Urobilinogen (0.2-1.0) E.U./dL Ur Leukocyte Esterase (NEGATIVE) Urine RBC /HPF Urine WBC /HPF Ur Epithelial Cells /LPF Urine Bacteria (NONE TO FEW) /HPF Urine Mucus (NEGATIVE) /LPF Urine Opiates Screen Negative (NEGATIVE) Urine Methadone Screen Negative (NEGATIVE) U Acetaminophen Screen Negative (NEGATIVE) Ur Barbiturates Screen Negative (NEGATIVE) Ur Tricyclics Screen Negative (NEGATIVE) Ur Phencyclidine Scrn Negative (NEGATIVE) Ur Amphetamine Screen Negative (NEGATIVE) U Methamphetamines Scrn Negative (NEGATIVE) U Benzodiazepines Scrn Negative (NEGATIVE) U Cocaine Metab Screen Negative (NEGATIVE) U Marijuana (THC) Screen Positive H (NEGATIVE) Ethyl Alcohol 0.213 H (0.000-0.080) g/dL 12/19/16 12/20/16 12/20/16 Range/Units 09:55 06:50 06:50 WBC 4.4 (4.0-10.2) K/uL RBC 3.95 L (4.33-5.41) M/uL Hgb 13.8 D (13.1-16.8) g/dL Hct 39.6 (39.0-49.0) % MCV 100.3 H D (84.0-98.0) fL MCH 34.9 H (28.2-33.3) pg MCHC 34.8 (31.7-36.0) g/dL RDW 12.6 (11.2-14.1) % Plt Count 75 L (150-350) K/uL Neut % (Auto) 40.8 L (45.0-80.0) % Lymph % (Auto) 49.4 (10.0-50.0) % [place] % (Auto) 6.8 (2.0-14.0) % Eos % (Auto) 2.5 (0.0-5.0) % Baso % (Auto) 0.5 (0.0-2.0) % Neut # (Auto) 1.80 (1.40-7.00) K/uL Lymph # (Auto) 2.18 (0.50-3.50) K/uL [place] # (Auto) 0.30 (0.00-1.00) K/uL Eos # (Auto) 0.11 (0.00-0.50) K/uL Baso # (Auto) 0.02 (0.00-0.20) K/uL PT (9.8-11.7) SEC INR APTT (23.5-30.0) SEC Sodium 138 (136-145) mmol/L Potassium 2.9 L* (3.5-5.1) mmol/L Chloride 102 (98-107) mmol/L Carbon Dioxide 30.0 (21.0-32.0) mmol/L BUN 6 L (7-18) mg/dL Creatinine 1.06 (0.51-1.17) mg/dL Est Cr Clr Drug Dosing 100.43 mL/min Estimated GFR (MDRD) > 60 mL/min Glucose 95 (74-106) mg/dL Calcium 7.1 L D (8.5-10.1) mg/dL Magnesium (1.8-2.4) mg/dL Total Bilirubin (0.2-1.0) mg/dL AST (15-37) U/L ALT (12-78) U/L Alkaline Phosphatase (46-116) IU/L Total Protein (6.4-8.2) g/dL Albumin (3.4-5.0) g/dL Amylase (25-115) U/L Lipase (73-393) U/L Specimen Type Urinvoid Urine Color Yellow Urine Appearance Clear Urine pH 7.0 (5.0-9.0) Ur Specific [place] 1.015 (1.005-1.030) Urine Protein Negative (NEGATIVE) mg/dL Urine Glucose (UA) Negative (NEGATIVE) mg/dL Urine Ketones Negative (NEGATIVE) mg/dL Urine Occult Blood Negative (NEGATIVE) Urine Nitrite Negative (NEGATIVE) Urine Bilirubin Negative (NEGATIVE) Urine Urobilinogen 0.2 (0.2-1.0) E.U./dL Ur Leukocyte Esterase Negative (NEGATIVE) Urine RBC 0-5 /HPF Urine WBC 0-5 /HPF Ur Epithelial Cells Few /LPF Urine Bacteria Few (NONE TO FEW) /HPF Urine Mucus Few H (NEGATIVE) /LPF Urine Opiates Screen (NEGATIVE) Urine Methadone Screen (NEGATIVE) U Acetaminophen Screen (NEGATIVE) Ur Barbiturates Screen (NEGATIVE) Ur Tricyclics Screen (NEGATIVE) Ur Phencyclidine Scrn (NEGATIVE) Ur Amphetamine Screen (NEGATIVE) U Methamphetamines Scrn (NEGATIVE) U Benzodiazepines Scrn (NEGATIVE) U Cocaine Metab Screen (NEGATIVE) U Marijuana (THC) Screen (NEGATIVE) Ethyl Alcohol (0.000-0.080) g/dL 12/21/16 12/21/16 12/21/16 Range/Units 06:55 06:55 06:55 WBC 4.4 (4.0-10.2) K/uL RBC 4.14 L (4.33-5.41) M/uL Hgb 14.3 (13.1-16.8) g/dL Hct 41.9 (39.0-49.0) % MCV 101.2 H (84.0-98.0) fL MCH 34.5 H (28.2-33.3) pg MCHC 34.1 (31.7-36.0) g/dL RDW 12.6 (11.2-14.1) % Plt Count 84 L (150-350) K/uL Neut % (Auto) 44.0 L (45.0-80.0) % Lymph % (Auto) 44.0 (10.0-50.0) % [place] % (Auto) 6.1 (2.0-14.0) % Eos % (Auto) 5.4 H (0.0-5.0) % Baso % (Auto) 0.5 (0.0-2.0) % Neut # (Auto) 1.94 (1.40-7.00) K/uL Lymph # (Auto) 1.94 (0.50-3.50) K/uL [place] # (Auto) 0.27 (0.00-1.00) K/uL Eos # (Auto) 0.24 (0.00-0.50) K/uL Baso # (Auto) 0.02 (0.00-0.20) K/uL PT 11.0 (9.8-11.7) SEC INR 1.0 APTT 27.9 (23.5-30.0) SEC Sodium 137 (136-145) mmol/L Potassium 3.8 (3.5-5.1) mmol/L Chloride 101 (98-107) mmol/L Carbon Dioxide 28.5 (21.0-32.0) mmol/L BUN 5 L (7-18) mg/dL Creatinine 0.84 (0.51-1.17) mg/dL Est Cr Clr Drug Dosing 126.74 mL/min Estimated GFR (MDRD) > 60 mL/min Glucose 87 (74-106) mg/dL Calcium 7.8 L (8.5-10.1) mg/dL Magnesium 0.9 L (1.8-2.4) mg/dL Total Bilirubin 0.9 (0.2-1.0) mg/dL AST 146 H (15-37) U/L ALT 84 H (12-78) U/L Alkaline Phosphatase 83 (46-116) IU/L Total Protein 7.0 (6.4-8.2) g/dL Albumin 3.4 (3.4-5.0) g/dL Amylase 58 (25-115) U/L Lipase 410 H (73-393) U/L Specimen Type Urine Color Urine Appearance Urine pH (5.0-9.0) Ur Specific [place] (1.005-1.030) Urine Protein (NEGATIVE) mg/dL Urine Glucose (UA) (NEGATIVE) mg/dL Urine Ketones (NEGATIVE) mg/dL Urine Occult Blood (NEGATIVE) Urine Nitrite (NEGATIVE) Urine Bilirubin (NEGATIVE) Urine Urobilinogen (0.2-1.0) E.U./dL Ur Leukocyte Esterase (NEGATIVE) Urine RBC /HPF Urine WBC /HPF Ur Epithelial Cells /LPF Urine Bacteria (NONE TO FEW) /HPF Urine Mucus (NEGATIVE) /LPF Urine Opiates Screen (NEGATIVE) Urine Methadone Screen (NEGATIVE) U Acetaminophen Screen (NEGATIVE) Ur Barbiturates Screen (NEGATIVE) Ur Tricyclics Screen (NEGATIVE) Ur Phencyclidine Scrn (NEGATIVE) Ur Amphetamine Screen (NEGATIVE) U Methamphetamines Scrn (NEGATIVE) U Benzodiazepines Scrn (NEGATIVE) U Cocaine Metab Screen (NEGATIVE) U Marijuana (THC) Screen (NEGATIVE) Ethyl Alcohol (0.000-0.080) g/dL PAT Results - Last 24 hrs: Microbiology 12/20/16 12:41 Stool / Feces Stool Occult Blood (PAT) - Final NEGATIVE OCCULT BLOOD Med Orders - Current: Current Medications Discontinued Medications Acetaminophen (Tylenol) 650 mg PO Q6H PRN PRN Reason: Pain Last Admin: 12/19/16 14:37 Dose: 650 mg Acetaminophen (Tylenol) 650 mg PO Q4H PRN PRN Reason: Pain/Fever Acetaminophen (Tylenol) 650 mg PO QID [facility] Last Admin: 12/21/16 11:17 Dose: 650 mg Calcium Carbonate/Glycine (Tums) 1,000 mg PO BID [facility] Last Admin: 12/21/16 09:04 Dose: 1,000 mg Citalopram Hydrobromide (Celexa) 10 mg PO DAILY [facility] Last Admin: 12/21/16 09:02 Dose: 10 mg Famotidine (Pepcid) 20 mg IVPUSH ONETIME ONE Stop: 12/19/16 10:26 Last Admin: 12/19/16 10:51 Dose: 20 mg Sodium Chloride (Normal Saline) 1,000 mls @ 999 mls/hr IV .BOLUS ONE Stop: 12/19/16 09:13 Last Admin: 12/19/16 08:33 Dose: 999 mls/hr Sodium Chloride (Normal Saline) 1,000 mls @ 200 mls/hr IV .BOLUS ONE Stop: 12/19/16 15:22 Last Admin: 12/19/16 10:51 Dose: 200 mls/hr Potassium Chloride 10 meq/ (Premix) 50 mls @ 50 mls/hr IV ONETIME ONE Stop: 12/19/16 11:25 Last Admin: 12/19/16 10:51 Dose: 50 mls/hr Thiamine HCl 100 mg/ Sodium (Chloride) 101 mls @ 202 mls/hr IV ONETIME ONE Stop: 12/19/16 10:28 Last Admin: 12/19/16 12:19 Dose: 202 mls/hr Sodium Chloride (Normal Saline) 1,000 mls @ 200 mls/hr IV ASDIRECTED [facility] Last Admin: 12/19/16 16:06 Dose: 200 mls/hr Dextrose/Lactated Ringer's (Dextrose 5%-Lactated Ringers) 1,000 mls @ 125 mls/ hr IV ASDIRECTED [facility] Last Admin: 12/19/16 23:40 Dose: 125 mls/hr Potassium Chloride 10 meq/ (Premix) 50 mls @ 50 mls/hr IV Q1H BRAD Stop: 12/20/16 15:59 Last Admin: 12/20/16 19:13 Dose: 50 mls/hr Sodium Chloride (Normal Saline) 1,000 mls @ 50 mls/hr IV ASDIRECTED [facility] Last Admin: 12/20/16 10:41 Dose: 50 mls/hr Potassium Chloride (Kcl 10 Meq In Water 50 Ml) Confirm Administered Dose 50 mls @ as directed .ROUTE .STK-MED ONE Stop: 12/20/16 19:13 Last Admin: 12/20/16 20:32 Dose: Not Given Ketorolac Tromethamine (Toradol) 30 mg IVPUSH Q6H PRN PRN Reason: Pain Stop: 12/24/16 20:08 Last Admin: 12/20/16 03:54 Dose: 30 mg Lisinopril (Prinivil) 10 mg PO DAILY [facility] Last Admin: 12/21/16 09:03 Dose: 10 mg Lorazepam (Ativan) 1 mg IVPUSH ONETIME ONE Stop: 12/19/16 08:14 Last Admin: 12/19/16 08:27 Dose: 1 mg Lorazepam (Ativan) 1 mg IVPUSH ONETIME ONE Stop: 12/19/16 12:35 Last Admin: 12/19/16 13:17 Dose: 1 mg Lorazepam (Ativan) 1 mg IVPUSH Q4H PRN PRN Reason: Withdrawal Symptoms Last Admin: 12/21/16 00:19 Dose: 1 mg Lorazepam (Ativan) 1 mg PO TID [facility] Last Admin: 12/20/16 12:16 Dose: 1 mg Lorazepam (Ativan) 2 mg PO TID [facility] Last Admin: 12/21/16 11:16 Dose: 2 mg Methyl Salicylate (Icy Hot Cream) 0 gm TOP QID PRN PRN Reason: Pain Miscellaneous Information (Remove Patch) 1 ea TRDERM DAILY [facility] Last Admin: 12/21/16 09:04 Dose: 1 ea Nicotine (Habitrol) 21 mg TRDERM DAILY [facility] Last Admin: 12/21/16 09:03 Dose: 21 mg Ondansetron HCl (Zofran) 4 mg IVPUSH ONETIME ONE Stop: 12/19/16 08:14 Last Admin: 12/19/16 08:23 Dose: 4 mg Ondansetron HCl (Zofran) 4 mg IVPUSH Q4H PRN PRN Reason: Nausea/Vomiting Last Admin: 12/19/16 19:34 Dose: 4 mg Pantoprazole Sodium (Protonix Iv) 40 mg IVPUSH ONETIME ONE Stop: 12/19/16 08:43 Last Admin: 12/19/16 08:52 Dose: 40 mg Pantoprazole Sodium (Protonix Iv) 40 mg IVPUSH Q12H [facility] Last Admin: 12/21/16 09:06 Dose: 40 mg Potassium Chloride (Klor-Con 10) 10 meq PO ONETIME ONE Stop: 12/19/16 10:26 Last Admin: 12/19/16 10:50 Dose: 10 meq Potassium Chloride (Klor-Con 10) 20 meq PO ONETIME ONE Stop: 12/19/16 18:59 Last Admin: 12/19/16 19:35 Dose: 20 meq Potassium Chloride (Klor-Con M20) 40 meq PO TID [facility] Last Admin: 12/21/16 11:15 Dose: 40 meq Promethazine HCl (Phenergan) 25 mg IM ONETIME ONE Stop: 12/19/16 15:58 Last Admin: 12/19/16 16:10 Dose: 25 mg Sodium Chloride (Saline Flush) 10 ml FLUSH ASDIRECTED PRN PRN Reason: Keep Vein Open Last Admin: 12/21/16 09:06 Dose: 10 ml Thiamine HCl (Vitamin B-1) 100 mg PO BEDTIME [facility] Last Admin: 12/20/16 19:14 Dose: 100 mg *Q Meaningful Use (DIS) - VTE *Q VTE Criteria *Q: - Stroke *Q Stroke Criteria *Q: - AMI *Q AMI Criteria *Q:
== END 2016-12-21 13:40 | disposition left against medical advice (07) | DRG 641 ==
LOC: LL.ED 08:00 → LL.MS 09:19 → OBSVTOIN 12-20 21:47
PROVIDERS: ADMIT Emergency Medicine; ATTEND Family Medicine
DX: E87.6 Hypokalemia (principal); E83.51 Hypocalcemia; E83.42 Hypomagnesemia; E86.0 Dehydration; F10.10 Alcohol abuse, uncomplicated; I10 Essential (primary) hypertension; R11.2 Nausea with vomiting, unspecified; F41.8 Other specified anxiety disorders; K21.9 Gastro-esophageal reflux disease without esophagitis; J44.9 Chronic obstructive pulmonary disease, unspecified; F19.90 Other psychoactive substance use, unspecified, uncomplicated; F17.210 Nicotine dependence, cigarettes, uncomplicated; R94.5 Abnormal results of liver function studies; Z88.6 Allergy status to analgesic agent; K75.9 Inflammatory liver disease, unspecified; Z91.19 Patient's noncompliance with other medical treatment and regimen
CPT/HCPCS: 36415; 80048; 80053; 80305; 81001; 82150; 82272; 83690; 83735; 85025; 85610; 85730; 96361; 96365; 96372; 96374; 96375; 96376; 99285; A9270-GY; C9113; G0378; G0480; J1885; J2060; J2405; J2550; J3411; J3480; J7030; J7042; J7050; S0028